=== PATIENT | male | born 1965 | race Caucasian/White ===

== ENCOUNTER → 2017-10-24 | Outpatient (CLI) | payer BC ==
--- NOTE | 2017-10-25 05:57 | CONS ---
CONSULTATION Consultation note for sleep apnea. Primary care physician is Dr. Griffin. 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 The patient snores and he occasionally wakes up gasping for air and he is very much concerned of obstructive sleep apnea. He goes to bed around 11 p.m. and wakes up at 5 a.m. in the morning and he is averaging around 6 hours of sleep. He occasionally wakes up choking and gasping for air. However this is not a common occurrence. No recent weight gain. He has been maintaining his weight with probably some limited weight gain or drop 5 to 10 pounds. PAST MEDICAL HISTORY: Hypertension and degenerative arthritis. PAST SURGICAL HISTORY: Ankle surgery and avulsion of the tibia. SOCIAL HISTORY: The patient is a nonsmoker. No history of alcoholism. No history of IV drugs. ALLERGIES: Allergies are to SULFA. FAMILY HISTORY: Positive for lung cancer in the father. MEDICATION LIST: Medication list includes lisinopril and Naprosyn. REVIEW OF SYSTEMS: Twelve-point review of system was done. Positive findings are mentioned above in the history of present illness. PHYSICAL EXAMINATION: BP is 150/100, pulse 84, respirations 16, temperature 98, saturation 98% on room air. Weight is 261, height 6 feet, 0 inch. Neck size 16-3/4 of an inch. GENERAL APPEARANCE: Calm, comfortable, in no acute distress. Head is atraumatic, normocephalic. NECK: Supple. There is no JVD. There is no goiter or neck masses. Mallampati class IV. LUNGS: Clear to auscultation. HEART: Sounds regular rate and rhythm. Normal S1, S2. No S3. No murmurs. ABDOMEN: Soft, nontender. No organomegaly. EXTREMITIES: No edema. No cyanosis or clubbing. Skin is negative for any wounds, ulceration or cellulitis. NEUROLOGIC: Alert and oriented x3. There is no focal neurological deficits. PSYCHIATRICALLY: Appropriate mood and affect. IMPRESSION: 1. Sleep apnea suspected clinically, currently under investigation. 2. Hypertension. 3. Degenerative arthritis. PLAN: Proceed with screening polysomnogram. Further recommendations are to follow based on the results of the sleep study. MMODL / IJN: [id number] /
== END ==
LOC: SLEEP 13:07
PROVIDERS: ATTEND Internal Medicine Critical Care Medicine
DX: G47.10 Hypersomnia, unspecified (principal); R53.83 Other fatigue; R06.83 Snoring; R06.89 Other abnormalities of breathing; I10 Essential (primary) hypertension; M19.90 Unspecified osteoarthritis, unspecified site; Z88.2 Allergy status to sulfonamides; Z79.899 Other long term (current) drug therapy; Z98.890 Other specified postprocedural states
CPT/HCPCS: 99201